=== PATIENT | female | born 1955 | race Caucasian/White ===

== ENCOUNTER → 2016-04-19 | Outpatient (CLI) | payer OTHER ==
[~2016-04-19] MED LIST: ASPEC325 PO; FLEC50TA20 PO; IBUP-1050 PO; NAPR1TAB9 PO
[2016-04-19 10:50] LABS: ALT/SGPT 25 U/L (12-78); AST/SGOT 9 U/L (15-37); BLOOD UREA NITROGEN 12 mg/dl (7-18); BUN/CREATININE RATIO 19.2 (10-20); CARBON DIOXIDE 26 mmol/L (21-32); CHLORIDE 106 mmol/L (98-107); CREATININE 0.64 mg/dl (0.60-1.20); GLUCOSE 175 mg/dl (70-99); MAGNESIUM 2.2 mg/dl (1.8-2.4); SODIUM 142 mmol/L (136-145)
[2016-04-19 10:54] LABS: ALB/GLOB RATIO 1.1 (0.9-2); ALKALINE PHOSPHATASE 102 U/L (45-117); CHOLESTEROL 189 mg/dl (0-200); CHOLESTEROL/HDL RATIO 4.7; HDL CHOLESTEROL 40 mg/dl; LDL CHOLESTEROL CALCULATED 115 mg/dl; TRIGLYCERIDES 171 mg/dl (0-150); VERY LOW DENSITY LIPOPROT CALC 34 mg/dl
== END | disposition home or self-care (01) ==
LOC: C.LAB 09:06
PROVIDERS: ATTEND Family Medicine
DX: E11.9 Type 2 diabetes mellitus without complications (principal); E78.5 Hyperlipidemia, unspecified; I49.3 Ventricular premature depolarization

== ENCOUNTER → 2016-04-23 | Outpatient (CLI) | payer OTHER ==
[2016-04-23 15:28] LABS: RATIO 8.6 mcg/mg (0-30.0)
[2016-04-24 06:36] LABS: ESTIMATED AVERAGE GLUCOSE 171 mg/dl; HA1C FLAG Normal (Normal)
== END | disposition home or self-care (01) ==
LOC: C.LAB 13:38
PROVIDERS: ATTEND Family Medicine
DX: E11.9 Type 2 diabetes mellitus without complications (principal)

== ENCOUNTER → 2016-10-10 | Outpatient (CLI) | payer OTHER ==
[2016-10-10 13:18] LABS: ESTIMATED AVERAGE GLUCOSE 128 mg/dl; HA1C FLAG Normal (Normal)
== END | disposition home or self-care (01) ==
LOC: C.LAB 12:34
PROVIDERS: ATTEND Family Medicine
DX: E11.9 Type 2 diabetes mellitus without complications (principal)

== ENCOUNTER 2017-04-01 18:39 | Emergency (ER) | payer OTHER ==
[~2017-04-01] VITALS: Ht 170.2 cm; Wt 93.8 kg
[2017-04-01 18:44] VITALS: TEMP 36.3; Ht 170.2 cm; Wt 93.8 kg
[2017-04-01] MEDS ORDERED: FENTANYL CITRATE INJ 50 MCG/1 ML 2 ML VIAL IV STA ×2 (18:52→19:56)
[2017-04-01] MEDS ORDERED: KETOROLAC TROMETHAMINE 30 MG/ML VIAL IV STA ×2 (18:52→19:56)
[2017-04-01] MEDS ORDERED: ONDANSETRON INJ 2 MG/ML 2 ML VIAL IV STA (18:52)
[2017-04-01] MEDS ORDERED: SODIUM CHLORIDE 0.9% 1000ML 1,000 ML IV STA (18:52)
[2017-04-01] MEDS ORDERED: OPTIRAY 320 IV PRN (19:30)
[2017-04-01] MEDS ORDERED: GLC500 PO (19:34)
[2017-04-01] MEDS ORDERED: PRAV20TA PO (19:34)
[2017-04-01 19:38] LABS: BASO % 1.8 %; BASO ABS # 0.12 K/uL (0-0.2); EOS % 6.8 %; EOS ABS # 0.45 K/uL (0-0.5); HEMATOCRIT 46.4 % (37-47); HEMOGLOBIN 15.6 g/dL (12.0-16.0); IG# 0.02 K/uL (0.00-0.02); LYMPH % 28.3 %; LYMPH ABS # 1.87 K/uL (1.2-3.4); MEAN CORPUSCULAR HEMOGLOBIN 28.6 pg (25-34); MEAN CORPUSCULAR HGB CONC 33.6 g/dl (32-36); MEAN PLATELET VOLUME 10.4 fL (7.4-10.4); MONO % 10.8 %; MONO ABS # 0.71 K/uL (0.11-0.59); NEUT ABS # 3.43 K/uL (1.4-6.5); PLATELET COUNT 229 K/uL (130-400); RED CELL DISTRIBUTION WIDTH CV 13.8 % (11.5-14.5)
[2017-04-01 19:56] LABS: ALBUMIN 3.7 gm/dl (3.4-5.0); ALT/SGPT 22 U/L (12-78); BLOOD UREA NITROGEN 16 mg/dl (7-18); CALCIUM 8.8 mg/dl (8.5-10.1); CARBON DIOXIDE 26 mmol/L (21-32); GLUCOSE 137 mg/dl (70-99); LIPASE 179 U/L (73-393); POTASSIUM 3.7 mmol/L (3.5-5.1); SODIUM 140 mmol/L (136-145)
[2017-04-01 19:59] LABS: ALKALINE PHOSPHATASE 81 U/L (45-117); AST/SGOT 11 U/L (15-37)
--- NOTE | 2017-04-01 20:33 | EMERGENCY ROOM VISIT NOTE ---
History Report prepared by Jose: Karol Case Under the Supervision of: Dr. Alberto Sun M.D. First contact with patient: 18:45 Chief Complaint: FLANK PAIN Stated Complaint: PAIN IN LEFT SIDE History of Present Illness The patient is a 61 year old female who presents to the Emergency Room with complaints of intermittent left flank pain starting 50 minutes ago. The patient describes the pain as a pressure and feels similar to menstrual cramping, but higher. She currently rates her pain as a 10/10 in severity. She notes that she took two Advil before coming, but shortly after vomited. She states that at first she thought these were just gas pains. She notes that she felt fine all day and her last bowel movement was this morning, which was normal. The patient denies fever, chills, cough, congestion, and blood in her urine. The patient notes that she has never had a kidney stone before and she has never had pain like this before. Source of History: patient Onset: 50 minutes ago Position: other (left flank) Symptom Intensity: 10/10 Quality: pressure, other ("menstrual cramping") Timing: intermittent Associated Symptoms: + vomiting, No fevers, No chills, No cough, No urinary symptoms Note: The patient denies congestion. Review of Systems See HPI for pertinent positives and negatives. A total of ten systems were reviewed and were otherwise negative. Past Medical & Surgical Medical Problems: (1) Chronic knee pain (2) Left Knee DJD Family History Patient reports no known family medical history. Social History Smoking Status: Never Smoker Drug Use: none Marital Status: Housing Status: lives with family Occupation Status: employed Current/Historical Medications Scheduled Metformin HCl (Metformin HCl), 500 MG PO BID Ondasetron Odt (Zofran Odt), 4 MG SL Q6H Pravastatin (Pravachol ), 20 MG PO QPM Tamsulosin Hcl (Flomax), 0.4 MG PO DAILY Scheduled PRN Ibuprofen Tab (Motrin), 800 MG PO Q8H PRN for Pain Oxycodone Hcl (Oxycodone Hcl), 1 CAP PO QID PRN for Pain Allergies Coded Allergies: No Known Allergies (Verified , 04/01/17) Physical Exam Vital Signs Date Time Temp Pulse Resp B/P (MAP) Pulse Ox O2 Delivery O2 Flow Rate FiO2 04/01/17 21:15 52 16 154/84 97 04/01/17 20:17 45 20 154/76 99 Room Air 04/01/17 18:44 36.3 58 16 218/107 99 Room Air Physical Exam GENERAL: Awake, alert, uncomfortable appearing, in no distress HENT: Normocephalic, atraumatic. Oropharynx unremarkable. EYES: Normal conjunctiva. Sclera non-icteric. NECK: Supple. No nuchal rigidity. FROM. No JVD. RESPIRATORY: Clear to auscultation. CARDIAC: Regular rate, normal rhythm. Extremities warm and well perfused. Pulses equal. ABDOMEN: Soft, non-distended. No tenderness to palpation. No rebound or guarding. No masses. RECTAL: Deferred. MUSCULOSKELETAL: Chest examination reveals no tenderness. The back is symmetrical on inspection without obvious abnormality. There is mild left CVA tenderness to palpation and left flank. No peritoneal signs. No joint edema. LOWER EXTREMITIES: Calves are equal size bilaterally and non-tender. No edema. No discoloration. NEURO: Normal sensorium. No sensory or motor deficits noted. SKIN: No rash or jaundice noted. Medical Decision & Procedures ER Provider Diagnostic Interpretation: Radiology results as stated below per my review and radiologist interpretation: CT SCAN OF THE ABDOMEN AND PELVIS WITH IV CONTRAST CLINICAL HISTORY: Left flank pain. COMPARISON STUDY: Pelvic radiograph dated 03/20/2014. TECHNIQUE: Following the IV administration of 114 cc of Optiray 320, CT scan of the abdomen and pelvis is performed from the lung bases to the proximal femora. Images are reviewed in the axial, sagittal, and coronal planes. IV contrast was administered without complication. A dose lowering technique was utilized adhering to the principles of ALARA. CT DOSE: 625.74 mGy.cm FINDINGS: Lung bases: The heart is normal in size and without pericardial effusion. The lung bases are clear. There is a tiny hiatal hernia. Liver: The contrast-enhanced liver is normal in size, contour, and attenuation. There is no intrahepatic biliary ductal dilatation. The hepatic veins and portal veins are patent. Gallbladder: Unremarkable. Spleen: Normal in size and attenuation. Pancreas: Unremarkable. Adrenal glands: Unremarkable. Kidneys: The contrast enhanced kidneys are normal in size. There is a 5 mm calculus at the protruding from the left vascular junction or located within the bladder seen on axial image #389. There is mild left hydroureteronephrosis. A small extrarenal pelvis is noted on the right. The kidneys enhance symmetrically. Abdominal vasculature: The abdominal aorta is normal in course and caliber noting mild atherosclerotic calcification. Bowel: The small bowel and colon are normal in course and caliber. The appendix is well-visualized and normal. Peritoneum: There is no intraperitoneal free air or abdominal ascites. Lymphadenopathy: None. Pelvic viscera: The bladder is normal as visualized. Uterine fibroids are noted. No adnexal lesion is seen. Skeletal structures: The skeletal structures are osteopenic. Postoperative change is noted in the right proximal femur. No lytic or blastic lesions are seen. IMPRESSION: 1. There is a 5 mm calculus either protruding from the left vesicoureteral junction or located within the bladder lumen. There is mild left hydroureteronephrosis, this may represent an obstructing or recently passed kidney stone. 2. No additional calculi are clearly identified in either kidney. 3. Additional findings as above. Electronically signed by: Primitivo Damian M.D. 04/01/2017 8:37 PM Dictated Date/Time: 04/01/2017 8:29 PM Laboratory Results 04/01/17 19:10 Red Blood Count 5.46, Mean Corpuscular Volume 85.0, Mean Corpuscular Hemoglobin 28.6, Mean Corpuscular Hemoglobin Concent 33.6, Mean Platelet Volume 10.4, Neutrophils (%) (Auto) 52.0, Lymphocytes (%) (Auto) 28.3, Monocytes (%) (Auto) 10.8, Eosinophils (%) (Auto) 6.8, Basophils (%) (Auto) 1.8, Neutrophils # (Auto ) 3.43, Lymphocytes # (Auto) 1.87, Monocytes # (Auto) 0.71, Eosinophils # (Auto ) 0.45, Basophils # (Auto) 0.12 04/01/17 19:10 Test 04/01/17 19:10 04/01/17 19:47 White Blood Count 6.60 K/uL (4.8-10.8) Red Blood Count 5.46 M/uL (4.2-5.4) Hemoglobin 15.6 g/dL (12.0-16.0) Hematocrit 46.4 % (37-47) Mean Corpuscular Volume 85.0 fL (80-100) Mean Corpuscular Hemoglobin 28.6 pg (25-34) Mean Corpuscular Hemoglobin Concent 33.6 g/dl (32-36) Platelet Count 229 K/uL (130-400) Mean Platelet Volume 10.4 fL (7.4-10.4) Neutrophils (%) (Auto) 52.0 % Lymphocytes (%) (Auto) 28.3 % Monocytes (%) (Auto) 10.8 % Eosinophils (%) (Auto) 6.8 % Basophils (%) (Auto) 1.8 % Neutrophils # (Auto) 3.43 K/uL (1.4-6.5) Lymphocytes # (Auto) 1.87 K/uL (1.2-3.4) Monocytes # (Auto) 0.71 K/uL (0.11-0.59) Eosinophils # (Auto) 0.45 K/uL (0-0.5) Basophils # (Auto) 0.12 K/uL (0-0.2) RDW Standard Deviation 42.0 fL (36.4-46.3) RDW Coefficient of Variation 13.8 % (11.5-14.5) Immature Granulocyte % (Auto) 0.3 % Immature Granulocyte # (Auto) 0.02 K/uL (0.00-0.02) Anion Gap 8.0 mmol/L (3-11) Est Creatinine Clear Calc Drug Dose 71.2 ml/min Estimated GFR () 71.4 Estimated GFR (Non- 61.6 BUN/Creatinine Ratio 16.3 (10-20) Calcium Level 8.8 mg/dl (8.5-10.1) Total Bilirubin 0.2 mg/dl (0.2-1) Direct Bilirubin < 0.1 mg/dl (0-0.2) Aspartate Amino Transf (AST/SGOT) 11 U/L (15-37) Alanine Aminotransferase (ALT/SGPT) 22 U/L (12-78) Alkaline Phosphatase 81 U/L (45-117) Total Protein 7.0 gm/dl (6.4-8.2) Albumin 3.7 gm/dl (3.4-5.0) Lipase 179 U/L (73-393) Urine Color YELLOW Urine Appearance CLEAR (CLEAR) Urine pH 8.0 (4.5-7.5) Urine Specific [place] 1.015 (1.000-1.030) Urine Protein NEG (NEG) Urine Glucose (UA) NEG (NEG) Urine Ketones NEG (NEG) Urine Occult Blood 2+ (NEG) Urine Nitrite NEG (NEG) Urine Bilirubin NEG (NEG) Urine Urobilinogen NEG (NEG) Urine Leukocyte Esterase NEG (NEG) Urine WBC (Auto) 1-5 /hpf (0-5) Urine RBC (Auto) 10-30 /hpf (0-4) Urine Hyaline Casts (Auto) 1-5 /lpf (0-5) Urine Epithelial Cells (Auto) 10-20 /lpf (0-5) Urine Bacteria (Auto) NEG (NEG) Laboratory results reviewed by me Medications Administered Medications (Trade) Dose Ordered Sig/Mignon Route Start Time Stop Time Status Last Admin Dose Admin Sodium Chloride 1,000 ml @ 999 mls/hr Q1H1M STAT IV 04/01/17 18:52 04/01/17 19:52 DC 04/01/17 19:10 999 MLS/HR Ketorolac Tromethamine (Toradol Inj) 15 mg NOW STAT IV 04/01/17 18:52 04/01/17 18:55 DC 04/01/17 19:11 15 MG Ondansetron HCl (Zofran Inj) 4 mg NOW STAT IV 04/01/17 18:52 04/01/17 18:55 DC 04/01/17 19:11 4 MG Fentanyl Citrate (Fentanyl Inj) 50 mcg NOW STAT IV 04/01/17 18:52 04/01/17 18:55 DC 04/01/17 19:12 50 MCG Fentanyl Citrate (Fentanyl Inj) 50 mcg NOW STAT IV 04/01/17 19:56 04/01/17 19:58 DC 04/01/17 20:23 50 MCG Ketorolac Tromethamine (Toradol Inj) 15 mg NOW STAT IV 04/01/17 19:56 04/01/17 19:58 DC 04/01/17 20:22 15 MG Tamsulosin HCl (Flomax Cap) 0.4 mg NOW ONCE PO 04/01/17 20:45 04/01/17 20:46 DC 04/01/17 21:12 0.4 MG Oxycodone HCl (Roxicodone Immediate Rel 5MG Home Pack) 1 homepack UD ONCE PO 04/01/17 21:00 04/01/17 21:01 DC 04/01/17 21:12 1 [facility] ED Course 1846: The patient was evaluated in room B5. A complete history and physical exam was performed. 2047: I reevaluated the patient. Discussed results and discharge instructions: She verbalized understanding and agreement. The patient is ready for discharge. Medical Decision I reviewed the patient's past medical history, medications, and the nursing notes as described above. Differential diagnoses include ureteral stone, UTI, pyelonephritis, hemorrhagic cyst, ovarian torsion, diverticulitis, colitis. The patient is a 61-year-old woman who presents emergency Department with left flank pain that occurred at 6:00 abruptly per history of present illness. Arrival the patient is mildly uncomfortable but no acute distress, afebrile stable vital signs. He is mild tenderness to the left CVA and left flank no peritoneal signs. Labs unremarkable including WBC and creatinine within normal limits. UA negative for infection. CT scan demonstrates a left 5 mm stone in the UVJ or just entering the bladder. Patient's symptoms improved after IV fluids, analgesia. At the stone is nearly passing while the patient follow-up PCP and if symptoms persist urology. Plan for analgesia, Flomax. Findings and plan for follow-up reviewed with patient. Patient agreeable and d/c'd per discharge instructions. Medication Reconcilliation Current Medication List: was personally reviewed by me Blood Pressure Screening Patient's blood pressure: Elevated blood pressure Blood pressure disposition: Elevated BP felt to be situational Impression Primary Impression: Ureteral stone with hydronephrosis Scribe Attestation The scribe's documentation has been prepared under my direction and personally reviewed by me in its entirety. I confirm that the note above accurately reflects all work, treatment, procedures, and medical decision making performed by me. Departure Information Dispostion Home / Self-Care Prescriptions Oxycodone Hcl (OXYCODONE HCL) 5 Mg Cap 1 CAP PO QID Y for Pain, #5 CAP Prov: Alberto Sun M.D. 04/01/17 Tamsulosin Hcl (FLOMAX) 0.4 Mg Cap 0.4 MG PO DAILY for 10 Days, #10 CAP Prov: Alberto Sun M.D. 04/01/17 Ondasetron Odt (ZOFRAN ODT) 4 Mg Tab 4 MG SL Q6H for Nausea, #6 TAB Prov: Alberto Sun M.D. 04/01/17 Ibuprofen Tab (MOTRIN) 800 Mg Tab 800 MG PO Q8H Y for Pain for 10 Days, #30 TAB Prov: Alberto Sun M.D. 04/01/17 Referrals Liliana Louise M.D. (PCP) Timothy Willingham MD, Urology Forms HOME CARE DOCUMENTATION FORM, IMPORTANT VISIT INFORMATION Patient Instructions Kidney Stones, My [facility] Additional Instructions Please follow up with your primary care physician in the next 1-3 days for re- evaluation, if sx do not resolve within the next week you may also follow up with urology, Dr. Willingham. You were found to have a kidney stone. Otherwise, your exam, CT scan, and lab results did not show signs of an emergent condition at this time. Flomax as directed to help with stone passage. Ibuprofen and Acetaminophen for pain as needed. Zofran for nausea as needed. Return to the emergency department for worsening symptoms as described in the accompanying instructions.
--- NOTE | 2017-04-01 20:38 | DIAGNOSTIC IMAGING REPORT ---
CT SCAN OF THE ABDOMEN AND PELVIS WITH IV CONTRAST CLINICAL HISTORY: Left flank pain. COMPARISON STUDY: Pelvic radiograph dated 03/20/2014. TECHNIQUE: Following the IV administration of 114 cc of Optiray 320, CT scan of the abdomen and pelvis is performed from the lung bases to the proximal femora. Images are reviewed in the axial, sagittal, and coronal planes. IV contrast was administered without complication. A dose lowering technique was utilized adhering to the principles of ALARA. CT DOSE: 625.74 mGy.cm FINDINGS: Lung bases: The heart is normal in size and without pericardial effusion. The lung bases are clear. There is a tiny hiatal hernia. Liver: The contrast-enhanced liver is normal in size, contour, and attenuation. There is no intrahepatic biliary ductal dilatation. The hepatic veins and portal veins are patent. Gallbladder: Unremarkable. Spleen: Normal in size and attenuation. Pancreas: Unremarkable. Adrenal glands: Unremarkable. Kidneys: The contrast enhanced kidneys are normal in size. There is a 5 mm calculus at the protruding from the left vascular junction or located within the bladder seen on axial image #389. There is mild left hydroureteronephrosis. A small extrarenal pelvis is noted on the right. The kidneys enhance symmetrically. Abdominal vasculature: The abdominal aorta is normal in course and caliber noting mild atherosclerotic calcification. Bowel: The small bowel and colon are normal in course and caliber. The appendix is well-visualized and normal. Peritoneum: There is no intraperitoneal free air or abdominal ascites. Lymphadenopathy: None. Pelvic viscera: The bladder is normal as visualized. Uterine fibroids are noted. No adnexal lesion is seen. Skeletal structures: The skeletal structures are osteopenic. Postoperative change is noted in the right proximal femur. No lytic or blastic lesions are seen. IMPRESSION: 1. There is a 5 mm calculus either protruding from the left vesicoureteral junction or located within the bladder lumen. There is mild left hydroureteronephrosis, this may represent an obstructing or recently passed kidney stone. 2. No additional calculi are clearly identified in either kidney. 3. Additional findings as above. Electronically signed by: Primitivo Damian M.D. 04/01/2017 8:37 PM Dictated Date/Time: 04/01/2017 8:29 PM
[2017-04-01] MEDS ORDERED: ONDA4TAB10 SL (20:44)
[2017-04-01] MEDS ORDERED: IBUP-1451 PO (20:44)
[2017-04-01] MEDS ORDERED: TAMS0.4C38 PO (20:44)
[2017-04-01] MEDS ORDERED: TAMSULOSIN HCL 0.4 MG CAP PO ONE (20:45)
[2017-04-01] MEDS ORDERED: OXYC1CAP5 PO (20:55)
[2017-04-01] MEDS ORDERED: OXYCODONE IR HOME PACK PO ONE (21:00)
[2017-04-01 21:15] VITALS: BP 154/84; PULSE 52; O2SAT 97
== END 2017-04-01 21:15 | disposition home or self-care (01) ==
LOC: C.EDB 18:40
DX: N13.1 Hydronephrosis with ureteral stricture, not elsewhere classified (principal); M17.12 Unilateral primary osteoarthritis, left knee; Z79.84 Long term (current) use of oral hypoglycemic drugs; Z79.899 Other long term (current) drug therapy

== ENCOUNTER → 2017-11-12 | Outpatient (CLI) | payer OTHER ==
[~2017-11-12] MED LIST changes: -ASPEC325 PO; -FLEC50TA20 PO; +GLC500 PO; -IBUP-1050 PO; -NAPR1TAB9 PO; +PRAV20TA PO
[2017-11-12 16:06] LABS: BASO % 1.1 %; BASO ABS # 0.08 K/uL (0-0.2); EOS % 3.9 %; HEMATOCRIT 47.2 % (37-47); HEMOGLOBIN 15.9 g/dL (12.0-16.0); IG# 0.03 K/uL (0.00-0.02); LYMPH % 20.4 %; LYMPH ABS # 1.55 K/uL (1.2-3.4); MEAN CORPUSCULAR HEMOGLOBIN 28.6 pg (25-34); MEAN CORPUSCULAR HGB CONC 33.7 g/dl (32-36); MEAN PLATELET VOLUME 10.6 fL (7.4-10.4); MONO % 10.5 %; NEUT % 63.7 %; NEUT ABS # 4.85 K/uL (1.4-6.5); PLATELET COUNT 218 K/uL (130-400); RED CELL DISTRIBUTION WIDTH CV 13.6 % (11.5-14.5); WHITE BLOOD COUNT 7.61 K/uL (4.8-10.8)
[2017-11-12 16:09] LABS: HEMOGLOBIN A1C 6.2 % (4.5-5.6)
[2017-11-12 16:18] LABS: PTT PATIENT 29.9 SECONDS (21.0-31.0)
--- NOTE | 2017-11-12 16:19 | DIAGNOSTIC IMAGING REPORT ---
CHEST 2 VIEWS ROUTINE CLINICAL HISTORY: PAT preoperative evaluation COMPARISON STUDY: 05/06/2015 FINDINGS: The bones soft tissues and hemidiaphragms are normal. The cardiomediastinal silhouette is normal. The lungs are clear. The pulmonary vasculature is normal. IMPRESSION: Negative chest. The above report was generated using voice recognition software. It may contain grammatical, syntax or spelling errors. Electronically signed by: Alverto Ragsdale M.D. 11/12/2017 4:18 PM Dictated Date/Time: 11/12/2017 4:17 PM
[2017-11-12 16:23] LABS: BLOOD UREA NITROGEN 13 mg/dl (7-18); CALCIUM 8.7 mg/dl (8.5-10.1); CARBON DIOXIDE 28 mmol/L (21-32); CREATININE 0.67 mg/dl (0.60-1.20); GLUCOSE 127 mg/dl (70-99); POTASSIUM 3.9 mmol/L (3.5-5.1); SODIUM 140 mmol/L (136-145)
== END | disposition home or self-care (01) ==
LOC: C.CPL 15:22
PROVIDERS: ATTEND Orthopaedic Surgery Sports Medicine
DX: Z01.818 Encounter for other preprocedural examination (principal); Z01.812 Encounter for preprocedural laboratory examination; Z01.810 Encounter for preprocedural cardiovascular examination